=== PATIENT | male | born 1990 | race Caucasian/White ===

== ENCOUNTER 2017-03-24 19:23 | Emergency (ER) | payer OTHER ==
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
[2017-03-24 19:32] VITALS: BP 124/77; PULSE 83; RESP 18; TEMP 98.1; O2SAT 94
== END 2017-03-24 19:40 | disposition home or self-care (01) ==
DX: F10.920 Alcohol use, unspecified with intoxication, uncomplicated (principal)